=== PATIENT | male | born 1970 | race Two or more races ===

== ENCOUNTER 2025-02-19 19:06 | Emergency (ER) | payer SELFPAY ==
[~2025-02-19] VITALS: Ht 170.2 cm; Wt 77.0 kg
--- NOTE | 2025-02-19 19:58 | ED.PDOC ---
History of Present Illness HPI Comments 55 year-old male presents to the ED with a chief complaint of epigastric abdominal pain, with associated symptoms of SOB, constipation, and generalized weakness as of today. Patient states the pain is constant, sharp, associated with "pressure" like sensation, non-radiating, and exacerbated with deep inhalat ion. Patient denies this happening before. Patient has a Hx of DM, Thyroid, and is taking medications daily, as prescribed. No further complaints or modifying factors at this time. REVIEW OF SYSTEMS: General: (+) gen weakness. No fever, no chills, or fatigue HEENT: No sore throat, no earache, no congestion, no neck pain. Cardiac: No chest pain. No palpitations. Lungs: (+) shortness of breath, no cough. GI: No nausea, no vomiting, no diarrhea, (+) constipation, (+) abdominal pain : No dysuria, frequency, or urgency. No hematuria. Musculoskeletal: No joint pain , no joint swelling, no extremity edema. Skin: No rash, no itching. Neuro: No headache, no dizziness (And as sated in HPI) PHYSICAL EXAM: General: Awake, alert and oriented. Moderate distress. Skin: Skin in warm, dry and intact. Appropriate color for ethnicity. HEENT: The head is normocephalic and atraumatic. Conjunctivae are clear without exudates or hemorrhage. Sclera is non-icteric. Eyelids are normal in appearance without swelling or lesions. Oral mucosa is pink and moist Neck: The neck is supple with normal range of motion. No JVD. Cardiac: Heart rate and rhythm are normal. No murmurs, gallops, or rubs are auscultated. Respiratory: No signs of respiratory distress. Lung sounds are clear in all lobes bilaterally without rales, rhonchi, or wheezes. Abdominal: epigastric abdominal tenderness; without distention, guarding or rigidity. Bowel sounds are present and normoactive in all four quadrants. Extremities: Lower extremities without edema. Neurological: The patient is awake, alert and oriented to person, place, and time with normal speech. Speech is clear. There is no facial asymmetry. Psychiatric: Appropriate mood and affect. Good judgement and insight. Chief Complaint: Abdominal Pain Time Seen by MD: 19:34 Reviewed Notes: Medications, Allergies Allergies: Coded Allergies: NO KNOWN ALLERGIES (Unverified , 02/19/25) Information Source: Patient Mode of Arrival: Ambulatory Severity: Moderate Timing: Hours Duration: Since onset Past Medical History PAST MEDICAL HISTORY: DM, Thyroid Social History Smoker: Non-Smoker Alcohol: Denies ETOH Use Drugs: Denies Drug Use Lives In: Home Was a procedure done? Was a procedure done?: No Differential Dx Considerations may include: Differential diagnoses considered include: Abdominal aortic aneurysm, NE, esophageal rupture, intestinal obstruction, mesenteric ischemia, perforated viscus or solid organ rupture, CHF with hepatomegaly, pneumonia, abscess, appendicitis, biliary disease, diverticulitis, gastritis, gastroenteritis, hepatitis, hernia, inflammatory bowel disease, pancreatitis, peptic ulcer disease, urinary tract infection, ureteral colic, constipation, GERD, irritable syndrome, abdominal wall pain, nonspecific abdominal pain, herpes zoster, nephrolithiasis. [ ]Also ruptured ectopic , ovarian torsion/cyst, tubo- ovarian abscess, PID, endometriosis, mittleschmerz. X-Ray, Labs, Meds, VS Vital Signs Date Time Temp Pulse Resp B/P (MAP) Pulse Ox O2 Delivery O2 Flow Rate FiO2 02/20/25 01:27 98.5 102 16 121/87 (98) 98 98.5 02/19/25 23:10 98 Room Air* 0 21 02/19/25 23:07 98.1 93 16 135/90 (105) 99 98.1 02/19/25 19:17 93 02/19/25 19:07 98.3 98 18 128/95 97 98.3 Lab Test 02/19/25 21:30 02/19/25 19:58 Range/Units Urine Color Light-yellow Yellow Urine Clarity Clear Clear Urine pH 5.0 5.0-9.0 Urine Specific [place] 1.032 1.001-1.035 Urine Protein Negative Negative Urine Ketones 1+ H Negative Urine Blood Negative Negative /uL Urine Nitrite Negative Negative Urine Bilirubin Negative Negative Urine Urobilinogen Normal Negative mg/dL Urine Leukocyte Esterase Negative Negative /uL Urine RBC None seen 0 - 3 /hpf Urine Microscopic WBC < 1 0-3 /HPF Urine Squamous Epithelial Cells Few <5 /hpf Urine Bacteria None seen None Seen /hpf Urine Glucose 4+ H Normal mg/dL White Blood Count 9.8 4.4-10.8 10^3/uL Red Blood Count 5.46 4.5-5.90 10^6/uL Hemoglobin 16.7 13.5-17.5 g/dL Hematocrit 49.1 41.0-53.0 % Mean Corpuscular Volume 89.9 80.0-100.0 fL Mean Corpuscular Hemoglobin 30.7 28.0-32.0 pg Mean Corpuscular Hemoglobin Concent 34.1 32.0-36.0 g/dL Red Cell Distribution Width 14.1 11.8-14.3 % Platelet Count 152 140-450 10^3/uL Mean Platelet Volume 8.8 6.9-10.8 fL Neutrophils (%) (Auto) 83.4 H 37.0-80.0 % Lymphocytes (%) (Auto) 10.0 10.0-50.0 % Monocytes (%) (Auto) 6.0 0.0-12.0 % Eosinophils (%) (Auto) 0.2 0.0-7.0 % Basophils (%) (Auto) 0.4 0.0-2.0 % Neutrophils # (Auto) 8.2 1.6-8.6 10 ^3/uL Lymphocytes # (Auto) 1.0 0.4-5.4 10 ^3/uL Monocytes # (Auto) 0.6 0-1.3 10 ^3/uL Eosinophils # (Auto) 0 0-0.8 10 ^3/uL Basophils # (Auto) 0 0-0.2 10 ^3/uL Nucleated Red Blood Cells 0.1 % Sodium Level 140 136-145 mmol/L Potassium Level 4.4 3.5-5.1 mmol/L Chloride Level 103 98-107 mmol/L Carbon Dioxide Level 27 20-31 mmol/L Anion Gap 10 5-15 Blood Urea Nitrogen 13 9-23 mg/dL Creatinine 1.16 0.700-1.30 mg/dL Glomerular Filtration Rate Calc 73 >90 mL/min BUN/Creatinine Ratio 11.2 10.0-20.0 Serum Glucose 179 H 74-106 mg/dL Lactic Acid Level 1.4 0.4-2.0 mmol/L Calcium Level 9.4 8.7-10.4 mg/dL Total Bilirubin 0.9 0.2-1.0 mg/dL Aspartate Amino Transferase (AST) 25 13-40 U/L Alanine Aminotransferase (ALT) 23 7-40 U/L Alkaline Phosphatase 91 46-116 U/L Troponin I High Sensitivity 3 L </=54 ng/L B-Type Natriuretic Peptide 1.31 0-100 pg/mL Total Protein 7.4 5.7-8.2 g/dL Albumin 4.7 3.2-4.8 g/dL Lipase 37 12-53 U/L Current Medications Medications (Trade) Dose Ordered Sig/Minda Route Start Time Stop Time Status Last Admin Al Hydrox/Mg Hydrox/Simethicone (Maalox Plus) 30 ml ONCE ONCE PO 02/19/25 19:45 02/19/25 19:46 DC 02/19/25 23:10 Lidocaine HCl (Xylocaine 2% Viscous) 10 ml ONCE ONCE PO 02/19/25 19:45 02/19/25 19:46 DC 02/19/25 23:10 Tramadol HCl (Ultram) 50 mg ONCE ONCE PO 02/19/25 19:45 02/19/25 19:46 DC 02/19/25 23:10 Famotidine (Pepcid Tablet) 40 mg ONCE ONCE PO 02/19/25 20:00 02/19/25 20:01 DC 02/19/25 23:10 [place] [id number] Ph: [phone] DIAGNOSTIC IMAGING Diagnostic Imaging Report : [id number] Signed PATIENT: KATERIN NERI ACCT: [id number] UNIT: [id number] : 1970 LOC: ER ROOM / BED: / AGE / SEX: 55 / M ADM STATUS: REG ER SERVICE 43 ORDERING PHYSICIAN: NIGEL ESCAMILLA MD PROCEDURE(s): CXR1 - CHEST XRAY 1 VIEW REASON: cp ORDER NUMBER(s): [id number], ACCESSION NUMBER(s): [id number] CLINICAL HISTORY: Chest pain. TECHNIQUE: Single frontal view of the chest was obtained. COMPARISON: None available. FINDINGS: DEVICES/LINES/TUBES: None. LUNGS: Clear. PLEURA: No pneumothorax or pleural effusion. MEDIASTINUM/OTHER: Normal heart size and mediastinal contours. Trachea is midline. BONES: No acute osseous abnormality. Mild scoliotic configuration of the thoracolumbar spine. UPPER ABDOMEN: Unremarkable. IMPRESSION: No acute cardiopulmonary process. Time of 1ST Reevaluation: 19:54 Reevaluation 1ST: Unchanged Patient Education/Counseling: Need For Follow Up Family Education/Counseling: No Family Present SEPSIS Sepsis Screen Date sepsis recognized/suspect: Feb 19, 2025 Time Sepsis recognized/suspect: 1908 Recent Procedure: No On Antibiotic Therapy: No Respiratory Rate >20: No Heart Rate >90: Yes Temp<36 C (96.8 F) or >38.3 C: No SBP <90 or MAP <65 mmHG: No New Acute Mental Status Change: No Is the patient on CPAP, BIPAP,: No Physician Orders Electrocardigram (02/19/25 19:21) Chest Xray 1 View (02/19/25 19:44) Gallbladder (02/19/25 22:32) Vital Signs Date Time Temp Pulse Resp B/P (MAP) Pulse Ox O2 Delivery O2 Flow Rate FiO2 02/20/25 01:27 98.5 102 16 121/87 (98) 98 98.5 02/19/25 23:10 98 Room Air* 0 21 02/19/25 23:07 98.1 93 16 135/90 (105) 99 98.1 02/19/25 19:17 93 02/19/25 19:07 98.3 98 18 128/95 97 98.3 Laboratory Tests Test 02/19/25 19:58 Lactic Acid Level 1.4 mmol/L (0.4-2.0) White Blood Count 9.8 10^3/uL (4.4-10.8) Medications Medications Dose Ordered Sig/Minda Route Start Time Stop Time Status Last Admin Dose Admin Al Hydrox/Mg Hydrox/Simethicone 30 ml ONCE ONCE PO 02/19/25 19:45 02/19/25 19:46 DC 02/19/25 23:10 Famotidine 40 mg ONCE ONCE PO 02/19/25 20:00 02/19/25 20:01 DC 02/19/25 23:10 Lidocaine HCl 10 ml ONCE ONCE PO 02/19/25 19:45 02/19/25 19:46 DC 02/19/25 23:10 Tramadol HCl 50 mg ONCE ONCE PO 02/19/25 19:45 02/19/25 19:46 DC 02/19/25 23:10 Departure 1 Departure Time of Disposition: 05:22 Impression: Primary Impression: Gallstones Disposition: HOME / SELF CARE / HOMELESS Condition: Stable Comments 55-year-old male presented with epigastric abdominal pain. No peritoneal signs on abdominal exam. No evidence of acute abdomen at this time. patient is well appearing. Labs show no leukocytosis or elevation of LFTs. Troponin negative. Imaging : US multiple gallstones, no cholecystitis. At the time of discharge patient is afebrile and is not hypotensive. Low suspicion for acute hepatobiliary disease (including acute cholecystitis, acute pancreatitis, PUD (including perforation), acute infectious process (pneumonia, hepatitis, pyelonephritis), acute appendicitis, vascular catastrophe, bowel obstructions, viscous perforation. Presentation not consistent with other acute, emergent causes of abdominal pain at this time. Patient felt stable for discharge home to follow up with the primary care provider promptly. Patient advised to return to the emergency department with any new, worsening or concerning symptoms. Critical Care Note Critical Care Time?: No Stability Stability form required: No Heart Score Heart Score: Heart Score Response (Comments) Value History N/A 0 EKG N/A 0 Age N/A 0 Risk Factors N/A 0 Troponin N/A 0 Total 0 I personally scribed for NIGEL ESCAMILLA MD ([employer]) on 02/19/25 at 19:58. Electronically submitted by Carlota Carmen (docplanner). I personally scribed for NIGEL ESCAMILLA MD ([employer]) on 02/19/25 at 19:59. Electronically submitted by Carlota Carmen (docplanner). I personally scribed for NIGEL ESCAMILLA MD ([employer]) on 02/19/25 at 20:29. Electronically submitted by Carlota Carmen (docplanner). NIGEL ESCAMILLA MD Feb 19, 2025 19:58
--- NOTE | 2025-02-19 20:19 | DVH ---
CLINICAL HISTORY: Chest pain. TECHNIQUE: Single frontal view of the chest was obtained. COMPARISON: None available. FINDINGS: DEVICES/LINES/TUBES: None. LUNGS: Clear. PLEURA: No pneumothorax or pleural effusion. MEDIASTINUM/OTHER: Normal heart size and mediastinal contours. Trachea is midline. BONES: No acute osseous abnormality. Mild scoliotic configuration of the thoracolumbar spine. UPPER ABDOMEN: Unremarkable. IMPRESSION: No acute cardiopulmonary process.
[2025-02-19 20:38] LABS: Hematocrit 49.1 % (41.0-53.0); Hemoglobin 16.7 g/dL (13.5-17.5); Mean Corpuscular Hemoglobin 30.7 pg (28.0-32.0); Mean Corpuscular Volume 89.9 fL (80.0-100.0); Nucleated Red Blood Cells % 0.1 %
[2025-02-19 20:55] LABS: Alanine Aminotransferase 23 U/L (7-40); Albumin 4.7 g/dL (3.2-4.8); Alkaline Phosphatase 91 U/L (46-116); Anion Gap 10 (5-15); BUN/Creatinine Ratio 11.2 (10.0-20.0); Blood Urea Nitrogen 13 mg/dL (9-23); Calcium 9.4 mg/dL (8.7-10.4); Carbon Dioxide 27 mmol/L (20-31); Chloride 103 mmol/L (98-107); Lipase 37 U/L (12-53); Potassium 4.4 mmol/L (3.5-5.1); Sodium 140 mmol/L (136-145); Total Protein 7.4 g/dL (5.7-8.2)
[2025-02-19 20:56] LABS: Bilirubin, Total 0.9 mg/dL (0.2-1.0)
[2025-02-19 21:02] LABS: Glucose 179 mg/dL (74-106)
[2025-02-19 23:10] VITALS: O2SAT 98
[2025-02-19] MEDS: MAALOX PLUS or MAALOX 30 ML PO ONE (23:10)
[2025-02-19] MEDS: LIDOCAINE VISCOUS 2% 15ML UD PO ONE (23:10)
[2025-02-19] MEDS: FAMOTIDINE 20 MG TAB PO ONE (23:10)
[2025-02-19 23:25] LABS: Urine Protein, UAD Negative (Negative)
--- NOTE | 2025-02-19 23:40 | DVH ---
INDICATION: Epigastric Pain TECHNIQUE: Multiple real-time sonographic images were obtained of the right upper quadrant. COMPARISON: None FINDINGS: Liver: Normal in size measuring 14.5 cm. Gallbladder: Gallstones that appear mobile. Borderline gallbladder distention. No wall thickening. Sonographic huerta's sign is negative. No surrounding edema. CBD: 0.3 cm, within normal limits. Pancreas: Not well visualized due to overlying bowel gas. Right kidney: 9.6 cm. No stones or hydronephrosis. IMPRESSION: Gallstones and gallbladder distension without other findings to suggest acute cholecystitis at this time.
[2025-02-20 01:27] VITALS: BP 121/87; PULSE 102; RESP 16; TEMP 98.5; O2SAT 98
--- NOTE | 2025-02-20 18:56 | ECG ---
[facility] Test Date: 2025-02-19 Test Time: 19:17:53 Pat Name: KATERIN NERI Department: ER Room: Gender: M [employer] St[employer] Operator: IC : 1970 Requested By: NIGEL ESCAMILLA Order Number: [id number] Reading MD: Suman Albrecht Measurements Intervals [place] Rate: 93 P: 77 IN: 152 QRS: 99 QRSD: 89 T: 21 QT: 361 QTc: 449 Interpretive Statements Sinus rhythm Borderline right axis deviation Electronically Signed On 02-24-2025 15:20:42 PST by Suman Albrecht Please click the below link to view image of tracing.
== END 2025-02-20 01:46 | disposition home or self-care (01) ==
LOC: ER 19:06
DX: K80.20 Calculus of gallbladder without cholecystitis without obstruction (principal); E11.9 Type 2 diabetes mellitus without complications; Z79.899 Other long term (current) drug therapy
CPT/HCPCS: 36415; 71045; 76705; 80053; 81001; 83605; 83690; 83880; 84484; 85025; 93005